=== PATIENT | female | born 1975 | race Caucasian/White ===

== ENCOUNTER → 2017-01-30 | Outpatient (CLI) | payer OTHER ==
[~2017-01-30] MED LIST: ADVIN25/60 INH; ALBUAER2 INH; BISM262C5 PO; CETI10TA10 PO; GLC500 PO; IBUP-103 PO; MONT1TAB3 PO
== END | disposition home or self-care (01) ==
LOC: C.LAB1850 14:31
PROVIDERS: ATTEND Physician Assistant
DX: N91.2 Amenorrhea, unspecified (principal)

== ENCOUNTER → 2017-02-13 | Outpatient (CLI) | payer OTHER ==
[2017-02-13 19:36] LABS: URINE APPEARANCE CLEAR (CLEAR); URINE BILIRUBIN NEG (NEG); URINE COLOR YELLOW; URINE EPITHELIAL CELL AUTO >30 /lpf (0-5); URINE NITRITE NEG (NEG); UROBILINOGEN NEG (NEG)
[2017-02-13 19:46] LABS: MANUAL MICROSCOPIC REQUIRED? NO; REVIEW REQ? NO
== END | disposition home or self-care (01) ==
LOC: C.LABSPEC 18:07
PROVIDERS: ATTEND Obstetrics & Gynecology
DX: O09.521 Supervision of elderly multigravida, first trimester (principal); Z3A.00 Weeks of gestation of pregnancy not specified

== ENCOUNTER → 2017-02-20 | Outpatient (CLI) | payer OTHER ==
[2017-02-20 17:19] LABS: BASO % 0.5 %; BASO ABS # 0.06 K/uL (0-0.2); COMPLETE YES; EOS % 1.9 %; HEMATOCRIT 37.6 % (37-47); IG% 0.2 %; LYMPH % 28.4 %; LYMPH ABS # 3.52 K/uL (1.2-3.4); MEAN CELL VOLUME 77.8 fL (80-100); MEAN CORPUSCULAR HEMOGLOBIN 23.8 pg (25-34); MEAN CORPUSCULAR HGB CONC 30.6 g/dl (32-36); MEAN PLATELET VOLUME 9.7 fL (7.4-10.4); MONO % 6.4 %; NEUT % 62.6 %; PLATELET COUNT 404 K/uL (130-400); RED BLOOD COUNT 4.83 M/uL (4.2-5.4); WHITE BLOOD COUNT 12.38 K/uL (4.8-10.8)
== END | disposition home or self-care (01) ==
LOC: C.LAB1850 16:30
PROVIDERS: ATTEND Obstetrics & Gynecology
DX: O09.521 Supervision of elderly multigravida, first trimester (principal); Z3A.00 Weeks of gestation of pregnancy not specified; F41.9 Anxiety disorder, unspecified; O02.1 Missed abortion

== ENCOUNTER → 2017-02-20 | Outpatient (CLI) | payer OTHER | END | disposition home or self-care (01) | LOC: C.PAPS 09:27 | PROVIDERS: ATTEND Obstetrics & Gynecology | DX: Z12.4 Encounter for screening for malignant neoplasm of cervix (principal) ==

== ENCOUNTER 2017-02-26 15:47 | Emergency (ER) | payer OTHER ==
[~2017-02-26] VITALS: Ht 160 cm; Wt 108.6 kg
[~2017-02-26 15:47] MED LIST changes: -IBUP-103 PO
[2017-02-26 15:53] VITALS: Ht 160 cm; Wt 108.6 kg
[2017-02-26] MEDS ORDERED: SODIUM CHLORIDE 0.9% 1000ML 1,000 ML IV STA (16:15)
[2017-02-26] MEDS ORDERED: KETOROLAC TROMETHAMINE 30 MG/ML VIAL IV STA (16:15)
[2017-02-26 16:41] LABS: BASO % 0.3 %; BASO ABS # 0.05 K/uL (0-0.2); COMPLETE YES; EOS % 1.2 %; HEMATOCRIT 29.7 % (37-47); IG% 0.3 %; LYMPH % 17.4 %; LYMPH ABS # 2.77 K/uL (1.2-3.4); MEAN CELL VOLUME 75.8 fL (80-100); MEAN CORPUSCULAR HEMOGLOBIN 24.5 pg (25-34); MEAN CORPUSCULAR HGB CONC 32.3 g/dl (32-36); MEAN PLATELET VOLUME 9.3 fL (7.4-10.4); MONO % 5.9 %; NEUT % 74.9 %; PLATELET COUNT 349 K/uL (130-400); RED BLOOD COUNT 3.92 M/uL (4.2-5.4); WHITE BLOOD COUNT 15.92 K/uL (4.8-10.8)
[2017-02-26] MEDS ORDERED: IBUP-103 PO (16:52)
[2017-02-26 17:03] LABS: BUN/CREATININE RATIO 7.5 (10-20); CALCIUM 8.7 mg/dl (8.5-10.1); CREATININE 0.79 mg/dl (0.60-1.20)
[2017-02-26 17:06] LABS: ALB/GLOB RATIO 0.8 (0.9-2)
--- NOTE | 2017-02-26 19:34 | DIAGNOSTIC IMAGING REPORT ---
PELVIC ULTRASOUND, TRANSABDOMINAL AND TRANSVAGINAL HISTORY: vaginal bleeding, miscarriage COMPARISON: None. FINDINGS: Uterus: 10.8 x 5.8 x 4.8 cm. Endometrial stripe: Thickened and heterogeneous measuring up to 2 cm. There is also a heterogeneous appearance to the distended lower uterine segment/cervical canal. There is a 2.2 x 1.8 x 1.1 cm complex cystic area at the cervical canal. This favors the deformed gestational sac. No pole or heart rate identified. There is no abnormal color flow within the thickened endometrium. Right ovary: Obscured by overlying bowel gas. Left ovary: Normal in size and demonstrates normal color flow. A 2.4 cm thick-walled cyst. This favors a normal corpus luteum. Miscellaneous:No pelvic free fluid. IMPRESSION: Thickened and heterogeneous endometrium with a 2.2 cm complex cystic focus within the cervical canal. This favors a gestational sac in the setting of a spontaneous in progress. No pole or heart rate identified at this time. Follow-up pelvic ultrasound and follow-up beta-hCG is recommended to ensure resolution of these findings. Electronically signed by: Gene Moore M.D. 02/26/2017 7:32 PM Dictated Date/Time: 02/26/2017 7:28 PM
--- NOTE | 2017-02-26 19:54 | EMERGENCY ROOM VISIT NOTE ---
History First contact with patient: 15:58 Chief Complaint: VAGINAL BLEEDING Stated Complaint: MISCARRIAGE History of Present Illness The patient is a 41 year old female who presents to the Emergency Room with complaints of vaginal bleeding and pelvic pain. The patient states that she was seen in her TAPE MACHINE TAILER's office this past week, 5 days ago. At that time, she had an ultrasound which showed a gestational sac but no embryo. She was estimated to be approximately 7-9 weeks . This was the first that she learned of the . She was told that she would likely miscarry and states that she started bleeding 2 days later. The bleeding became heavier the next day and she had one episode of vomiting. She states she took some ibuprofen last night which seemed to help with her bleeding and pain, but the bleeding and pain returned today. She states the pain has been steadily increasing and she rates her current discomfort a 9/10. She denies any history of bleeding disorders. She denies any urinary symptoms. She denies previous pregnancies. Review of Systems A complete 10 point review of systems was reviewed with the patient with pertinent positives and negatives as per history of present illness. All else were negative. Social History Smoking Status: Former Smoker Drug Use: none Marital Status: single Occupation Status: employed Current/Historical Medications Scheduled Cetirizine Hcl (Zyrtec), 10 MG PO HS Fluticasone Prop/Salmeterol (Advair Diskus 250/50 60 Dose), 1 PUFF INH HS Metformin HCl (Metformin HCl), 850 MG PO DAILY Montelukast Sodium (Singulair), 10 MG PO HS Miscellaneous Medications Ibuprofen Tab (Advil), 200 MG PO Physical Exam Vital Signs Date Time Temp Pulse Resp B/P (MAP) Pulse Ox O2 Delivery O2 Flow Rate FiO2 02/27/17 00:02 36 71 16 111/60 (77) 98 Room Air 02/27/17 00:00 36 72 16 111/60 97 Room Air 02/26/17 23:50 36 67 17 104/62 (69) 98 Room Air 02/26/17 23:40 68 16 121/62 (69) 99 Room Air 02/26/17 23:30 68 18 111/57 (69) 99 Room Air 02/26/17 23:20 74 18 117/59 (73) 99 Room Air 02/26/17 23:10 78 20 132/71 (78) 100 Room Air 02/26/17 23:00 81 19 96/47 (60) 100 Oxymask 10 02/26/17 22:50 36.3 87 20 128/78 100 Oxymask 10 02/26/17 21:22 89 18 150/64 99 02/26/17 21:04 89 18 150/64 99 Room Air 02/26/17 18:47 76 18 118/66 98 Room Air 02/26/17 15:53 36.6 88 18 125/73 100 Room Air Physical Exam VITALS: Vitals are noted on the nurse's note and reviewed by myself. Vital signs stable. GENERAL: This is a 41-year-old female, in no acute distress, nondiaphoretic, well-developed well-nourished. HEENT: Normocephalic. PERRLA. Mucous membranes moist. Neck is supple without nuchal rigidity. HEART: Regular rate and rhythm without murmurs gallops or rubs. LUNGS: Clear to auscultation bilaterally without wheezes, rales or rhonchi. ABDOMEN: Soft, tenderness to palpation across the lower abdomen. No guarding or rebound tenderness. PELVIC: External genitalia unremarkable. Moderate amount of blood within the vaginal fold. No significant active bleeding. NEURO: Patient was alert and oriented to person place and time. Medical Decision & Procedures ER Provider Diagnostic Interpretation: PELVIC ULTRASOUND, TRANSABDOMINAL AND TRANSVAGINAL FINDINGS: Uterus: 10.8 x 5.8 x 4.8 cm. Endometrial stripe: Thickened and heterogeneous measuring up to 2 cm. There is also a heterogeneous appearance to the distended lower uterine segment/cervical canal. There is a 2.2 x 1.8 x 1.1 cm complex cystic area at the cervical canal. This favors the deformed gestational sac. No pole or heart rate identified. There is no abnormal color flow within the thickened endometrium. Right ovary: Obscured by overlying bowel gas. Left ovary: Normal in size and demonstrates normal color flow. A 2.4 cm thick-walled cyst. This favors a normal corpus luteum. Miscellaneous:No pelvic free fluid. IMPRESSION: Thickened and heterogeneous endometrium with a 2.2 cm complex cystic focus within the cervical canal. This favors a gestational sac in the setting of a spontaneous in progress. No pole or heart rate identified at this time. Follow-up pelvic ultrasound and follow-up beta-hCG is recommended to ensure resolution of these findings. Laboratory Results 02/26/17 16:28 Red Blood Count 3.92, Mean Corpuscular Volume 75.8, Mean Corpuscular Hemoglobin 24.5, Mean Corpuscular Hemoglobin Concent 32.3, Mean Platelet Volume 9.3, Neutrophils (%) (Auto) 74.9, Lymphocytes (%) (Auto) 17.4, Monocytes (%) (Auto) 5.9, Eosinophils (%) (Auto) 1.2, Basophils (%) (Auto) 0.3, Neutrophils # (Auto) 11.93, Lymphocytes # (Auto) 2.77, Monocytes # (Auto) 0.94, Eosinophils # (Auto) 0.19, Basophils # (Auto) 0.05 02/26/17 16:28 Test 02/26/17 16:28 02/26/17 22:50 White Blood Count 15.92 K/uL (4.8-10.8) Red Blood Count 3.92 M/uL (4.2-5.4) Hemoglobin 9.6 g/dL (12.0-16.0) Hematocrit 29.7 % (37-47) Mean Corpuscular Volume 75.8 fL (80-100) Mean Corpuscular Hemoglobin 24.5 pg (25-34) Mean Corpuscular Hemoglobin Concent 32.3 g/dl (32-36) Platelet Count 349 K/uL (130-400) Mean Platelet Volume 9.3 fL (7.4-10.4) Neutrophils (%) (Auto) 74.9 % Lymphocytes (%) (Auto) 17.4 % Monocytes (%) (Auto) 5.9 % Eosinophils (%) (Auto) 1.2 % Basophils (%) (Auto) 0.3 % Neutrophils # (Auto) 11.93 K/uL (1.4-6.5) Lymphocytes # (Auto) 2.77 K/uL (1.2-3.4) Monocytes # (Auto) 0.94 K/uL (0.11-0.59) Eosinophils # (Auto) 0.19 K/uL (0-0.5) Basophils # (Auto) 0.05 K/uL (0-0.2) RDW Standard Deviation 42.0 fL (36.4-46.3) RDW Coefficient of Variation 15.1 % (11.5-14.5) Immature Granulocyte % (Auto) 0.3 % Immature Granulocyte # (Auto) 0.04 K/uL (0.00-0.02) Anion Gap 9.0 mmol/L (3-11) Est Creatinine Clear Calc Drug Dose 111.9 ml/min Estimated GFR () 108.5 Estimated GFR (Non- 93.6 BUN/Creatinine Ratio 7.5 (10-20) Calcium Level 8.7 mg/dl (8.5-10.1) Total Bilirubin 0.3 mg/dl (0.2-1) Aspartate Amino Transf (AST/SGOT) 10 U/L (15-37) Alanine Aminotransferase (ALT/SGPT) 18 U/L (12-78) Alkaline Phosphatase 73 U/L (45-117) Total Protein 6.8 gm/dl (6.4-8.2) Albumin 3.1 gm/dl (3.4-5.0) Globulin 3.7 gm/dl (2.5-4.0) Albumin/Globulin Ratio 0.8 (0.9-2) Bedside Glucose 121 mg/dl (70-90) Medications Administered Medications (Trade) Dose Ordered Sig/Lino Route Start Time Stop Time Status Last Admin Dose Admin Sodium Chloride 1,000 ml @ 999 mls/hr Q1H1M STAT IV 02/26/17 16:15 02/26/17 17:15 DC 02/26/17 16:46 999 MLS/HR Ketorolac Tromethamine (Toradol Inj) 30 mg NOW STAT IV 02/26/17 16:15 02/26/17 16:17 DC 02/26/17 16:46 30 MG ED Course The patient was evaluated as above. Labs were drawn and IV access was obtained. Patient was medicated with 30 mg Toradol IV. Patient was reevaluated and states that the Toradol did help to improve her pain. Pelvic ultrasound was performed and read by radiology as above. Case was discussed with Dr. Gomez of [facility]IL[employer]. She will take the patient to the OR for D&E. Medical Decision Differential diagnosis includes incomplete , anemia, spontaneous , among others. The patient is a 41-year-old female who presents today complaining of vaginal bleeding and pelvic pain in the setting of a nonviable . The patient was seen by her TAPE MACHINE TAILER and told that she had a gestational sac without an embryo. She has had vaginal bleeding for the past few days and states that her symptoms worsened this morning, prompting her to present to the ER. Labs revealed a hemoglobin of 9.6, which is decreased from the patient's baseline. Leukocytosis of 15,000. Pelvic exam showed no tissue within the cervical os. Ultrasound showed what appears to be the gestational sac within the cervix. Case was discussed with Dr. Gomez, the TAPE MACHINE TAILER on-call, who will take the patient to the OR for D&E. Impression Primary Impression: Incomplete Departure Information Referrals No Doctor, Assigned (PCP) Patient Instructions [facility]
--- NOTE | 2017-02-26 21:10 | History and Physical ---
History & Physical Date Feb 26, 2017. Chief Complaint vaginal bleeding and cramping History of Present Illness The patient is a 41 year old female with iup at 9 weeks by dates. She presented for a nob and was found to have a probable anembryonic . WAs given bleeding precautions and f/u for one week. She started having spotting and some mild cramping on Sunday and into Sat. Woke up Sunday morning with quite heavy bleeding and cramping. Notes she passed large clots and had significant bleeding. Although her bleeding has slowed somewhat, her cramping has gotten significantly worse. She is unable to function secondary to pain. Presents to the ED. ON exam per PA, there is no tissue in the os. ON US, there is complex tissue in the jaswinder that is likely consistent with the gestational sac. Discussed options to include D&E, medical management. She wishes to proceed with surgery. Past Medical/Surgical History pmhx--Type 2 diabetes, hx colitis, hx of asthma (well controlled), obesity, hx of varicella psxhx--leep x 2, lpsc with removal of cyst wrapped around her FT Additional History Hepatic Disease: No Endocrine Disorder: Yes Kidney Disease: No Hypertension: No Heart Disease: No Bleeding Tendencies: No Infectious Diseases: No LMP: 12/19/16 Allergies Coded Allergies: Shellfish (Unverified Allergy, Severe, SHELLFISH,FISH-THROAT SWELLS, ) Cephalexin (Verified Allergy, Mild, SEIZURE, 07/28/15) Amoxicillin (Verified Allergy, Unknown, HEART PALPITATIONS, HIVES, FAINTING,BP DROPS, 02/05/15) Clavulanic Acid (Verified Allergy, Unknown, HEART PALPITATIONS,HIVES, FAINTING,BP DROPS, 02/05/15) Doxycycline (Verified Allergy, Unknown, HEART PALPITATIONS, HIVES, FAINTING, BP DROPS, 02/05/15) Erythromycin (Verified Allergy, Unknown, HEART PALPITATIONS,HIVES,FAINTING , BP DROPS, 02/05/15) Mushroom (Verified Allergy, Unknown, CHEEKS SWELL A LITTLE, FLUSHED, ) Penicillins (Verified Allergy, Unknown, HEART PALPITATIONS, HIVES,FAINTING ,BP DROPS, 02/05/15) Sulfa Antibiotics (Verified Allergy, Unknown, HEART PALPITATIONS,HIVES, FAINTING, BP DROPS, 02/05/15) Sulfamethoxazole w/Trimethoprim (Verified Allergy, Unknown, HEART PALPITATIONS, HIVES, FAINTING, BP DROPS, 02/05/15) Tetracycline (Verified Allergy, Unknown, HEART PALPITATIONS,HIVES, FAINTING, BP DROPS, 02/05/15) Home Medications Scheduled Cetirizine Hcl (Zyrtec), 10 MG PO HS Fluticasone Prop/Salmeterol (Advair Diskus 250/50 60 Dose), 1 PUFF INH HS Metformin HCl (Metformin HCl), 850 MG PO DAILY Montelukast Sodium (Singulair), 10 MG PO HS Miscellaneous Medications Ibuprofen Tab (Advil), 200 MG PO Physical Examination Skin: warm/dry Neck: supple Respiratory/Chest: lungs clear Cardiovascular: regular rate, rhythm Abdomen / GI: non tender, + pertinent finding (obese) Back: normal inspection Extremities: normal inspection Neurologic/Psych: alert, oriented x 3 Diagnosis Incomplete . Plan of Treatment Plan to proceed with D&E. The risks of the surgery were discussed with the patient including anesthesia, bleeding, need for transfusion, infection, perforation of the uterus, need for further surgery or hospitalization, uterine scarring, heart attack, blood clot , stroke or . The risks and benefits of medical management were also reviewed with the patient. Patient is allergic to EVERY antibiotic she has ever taken and all reactions have been anaphylaxis. This includes the most common preop antibiotic for this procedure --doxy. An alternative is azithro--allergic. She may not have ever been exposed to Flagyl the other alternative. However, she is very concerned she might have a reaction and her previous physicians noted that if she needed to be on antibiotics, she should be hospitalized for at least 5 days. We discussed the risks of infection should she not take prophylactic antibiotics. She is willing to accept the risks of infection and declines to take antibiotics. I feel the risk of possible adverse reaction to antibiotics is outweighed by the benefits and agree. She is aware she is taking a risk.
[2017-02-26 21:22] VITALS: O2SAT 99
[2017-02-26] MEDS ORDERED: MoRPHine SULFATE PF 1 MG/ML 10 ML AMP/VIAL ONE (21:54)
[2017-02-26] MEDS ORDERED: FENTANYL CITRATE INJ 50 MCG/1 ML 2 ML VIAL ONE (21:54)
[2017-02-26] MEDS ORDERED: ROCURONIUM BROMID 50MG/5ML SYR ONE (22:34)
[2017-02-26] MEDS ORDERED: ONDANSETRON INJ 2 MG/ML 2 ML VIAL ONE (22:34)
[2017-02-26] MEDS ORDERED: GLYCOPYRROLATE INJ 0.2 MG/ML VIAL ONE (22:34)
[2017-02-26] MEDS ORDERED: LIDOCAINE HCL 2% 2 ML VIAL (20MG/ML) ONE (22:34)
[2017-02-26] MEDS ORDERED: PROPOFOL IV EMULSION 10 MG/ML 20 ML VIAL IV ONE (22:34)
[2017-02-26] MEDS ORDERED: KETOROLAC TROMETHAMINE 30 MG/ML VIAL ONE (22:34)
[2017-02-26] MEDS ORDERED: DEXAMETHASONE SOD INJ 4 MG/ML VIAL ONE (22:34)
[2017-02-26] MEDS ORDERED: SUCCINYLCHOLINE CHLORIDE 20 MG/ML 10 ML VIAL IV ONE (22:34)
[2017-02-26] MEDS ORDERED: NEOSTIGMINE METHYLSULFATE 5 MG/5 ML SYR ONE (22:34)
[2017-02-26] MEDS ORDERED: PROMETHAZINE HCL INJ 6.25 MG in SODIUM CHLORIDE 0.9% 50ML 50 ML IV PRN (23:00)
[2017-02-26] MEDS ORDERED: ONDANSETRON INJ 2 MG/ML 2 ML VIAL IV PRN (23:00)
[2017-02-26] MEDS ORDERED: ATROPINE SULFATE 0.1 MG/ML 5ML SYR IV PRN (23:00)
[2017-02-26] MEDS ORDERED: EpHEDrine SULFATE INJ 50 MG/ML AMP IV PRN (23:00)
[2017-02-26] MEDS ORDERED: FENTANYL CITRATE INJ 50 MCG/1 ML 2 ML VIAL IV PRN (23:00)
[2017-02-26] MEDS ORDERED: LACTATED RINGER'S 1000ML 1,000 ML IV SCH (23:31)
--- NOTE | 2017-02-26 23:33 | Discharge Instructions ---
Discharge Instructions Date of Service Feb 26, 2017. Visit Reason for Visit: Miscarriage Discharge Discharge Diagnosis / Problem: S/P d&e Discharge Goals Goal(s): Specific goals Activity Recommendations Activity Limitations: per Instructions/Follow-up section Anesthesia . Post Anesthesia Instructions: If you have had General Anesthesia or IV Sedation: * Do not drive today. * Resume driving when surgeon permits. * Do not make important decisions or sign legal documents today. * Call surgeon for: 1. Temperature elevations greater than 101 degrees F. 2. Uncontrollable pain. 3. Excessive bleeding. 4. Persistent nausea and vomiting. 5. Medication intolerance (nausea, vomiting or rash). * For nausea and vomiting use only clear liquids such as: tea, soda, bouillon until nausea subsides, then gradually increase diet as tolerated. * If you have any concerns or questions, call your surgeon's office. If physician is unavailable and it is an emergency, call 911 or go to the nearest emergency room. . Instructions / Follow-Up Instructions / Follow-Up ACTIVITY RECOMMENDATIONS: * Avoid tampons, douching, hot tubs, pools, and intercourse until bleeding has stopped. * May shower as usual. * No strenuous activity for 24-48 hours. After 24-48 hours, you may do anything you feel like doing (driving and sports are okay). SPECIAL CARE INSTRUCTIONS: Special Diet: * Mild nausea may occur in the immediate post-operative period. * Take clear liquids such as tea, cola or bouillon until all nausea has subsided; you may then resume your normal diet. Special Care: * Light bleeding and vaginal spotting can last from a few days to 3-4 weeks. Call your doctor if bleeding becomes heavier than the heaviest part of your period. * Check your temperature twice a day for one week. If it goes above 100.4 degrees Fahrenheit (38.0 Celsius), notify your doctor. * Call your doctor's office for an appointment for 6 weeks after your surgery. FOLLOW-UP VISIT: Call your doctor's office for an appointment for 6 weeks after your surgery. Diet Recommendations Recommended Home Diet: no limitations, resume previous diet Procedures Procedures Performed: Dilation and Evacuation Pending Studies Studies pending at discharge: no Medical Emergencies . Who to Call and When: Medical Emergencies: If at any time you feel your situation is an emergency, please call 911 immediately. . Non-Emergent Contact Non-Emergency issues call your: [facility] . . "Provider Documentation" section prepared by Tiffanie Gomez. .
--- NOTE | 2017-02-26 23:35 | Anesthesiology Progress Note ---
Anesthesia Post Op Note Date & Time Feb 26, 2017 at 23:35 Vital Signs Pain Intensity: 0 Vital Signs Past 12 Hours Date Time Temp Pulse Resp B/P (MAP) Pulse Ox O2 Delivery O2 Flow Rate FiO2 02/26/17 23:30 68 18 111/57 (69) 99 Room Air 02/26/17 23:20 74 18 117/59 (73) 99 Room Air 02/26/17 23:10 78 20 132/71 (78) 100 Room Air 02/26/17 23:00 81 19 96/47 (60) 100 Oxymask 10 02/26/17 22:50 36.3 87 20 128/78 100 Oxymask 10 02/26/17 21:22 89 18 150/64 99 02/26/17 21:04 89 18 150/64 99 Room Air 02/26/17 18:47 76 18 118/66 98 Room Air 02/26/17 15:53 36.6 88 18 125/73 100 Room Air Notes Mental Status: alert / awake / arousable, participated in evaluation Pt Amnestic to Procedure: Yes Nausea / Vomiting: adequately controlled Pain: adequately controlled Airway Patency, RR, SpO2: stable & adequate BP & HR: stable & adequate Hydration State: stable & adequate Anesthetic Complications: no major complications apparent
--- NOTE | 2017-02-26 23:35 | [facility] Post Operative Brief Note ---
Immediate Operative Summary Operative Date Feb 26, 2017. Pre-Operative Diagnosis incomplete Post-Operative Diagnosis same Procedure(s) Performed Dilation and Evacuation Surgeon Dr. Gomez [employer] Surgeon(s) none Estimated Blood Loss 50ml Findings UTERUS SOUNDED TO 8CM, POCS REMOVED. Fluids (cc crystalloids) 800CC Specimens products of conception Drains NONE Anesthesia GETT Complication(s) None Disposition Surgical ICU
[2017-02-26] MEDS ORDERED: IBUPROFEN 600 MG TAB PO PRN (23:45)
[2017-02-26] MEDS ORDERED: IBUPROFEN 200 MG TAB PO PRN (23:45)
[2017-02-26] MEDS ORDERED: MoRPHine SULFATE 4 MG/ML 1 ML CARP\\VIAL IV PRN (23:45)
[2017-02-26] MEDS ORDERED: ACETAMINOPHEN 325 MG TAB PO PRN (23:45)
[2017-02-26] MEDS ORDERED: ACETAMINOPHEN 650 MG SUPP PR PRN (23:45)
[2017-02-26] MEDS ORDERED: OXYCODONE/ACETAMINOPHEN 5-325 TAB PO PRN ×2 (23:45)
[2017-02-26] MEDS ORDERED: MoRPHine SULFATE 2 MG/ML CARP IV PRN ×2 (23:45)
[2017-02-26] MEDS ORDERED: KETOROLAC TROMETHAMINE 30 MG/ML VIAL IV. PRN ×2 (23:45)
[2017-02-27] VITALS: BP 111/60; PULSE 72; TEMP 36; O2SAT 97
[2017-02-27 00:50] VITALS: BP 115/58; PULSE 68; O2SAT 97
--- NOTE | 2017-02-27 02:17 | OPERATIVE REPORT ---
DATE OF OPERATION: 02/26/2017 PREOPERATIVE DIAGNOSIS: Incomplete . POSTOPERATIVE DIAGNOSIS: Same. PROCEDURE: Dilation and evacuation. SURGEON: Tiffanie Gomez MD ANESTHESIA: General per endotracheal tube. ESTIMATED BLOOD LOSS: 50 mL. FLUIDS: 800 mL of crystalloid. URINE OUTPUT: About 50 mL of concentrated urine drained from the bladder at the end of the procedure. INDICATIONS: The patient is a 3, para 0-0-2-0, who recently presented for an OB visit. She was 9 weeks by dates, but on dating ultrasound was found to have likely anembryonic and the gestational sac was in the lower part of the uterus/lower uterine segment. The patient was counseled that this was likely a miscarriage and was to follow up in 1 week. She began spotting on Sunday and Sunday, on Sunday she had heavy bleeding. Today her bleeding has decreased, but she has significant pain. Uterus shows retained products of conception. FINDINGS: Uterus sounded to 8 cm. Products of conception were removed. I called for ultrasound guidance to make sure that all products were removed. COMPLICATIONS: None. DRAINS: None. DISPOSITION: To recovery room in stable condition. DESCRIPTION OF PROCEDURE: The patient was taken to the operating room where she was identified verbally and by bracelet. She was placed in the dorsal supine position where general anesthesia was induced without difficulty. She was then placed in dorsal lithotomy position in candy-cane stirrups and prepped and draped in normal sterile fashion. Timeout was held identifying correct patient, procedure and positioning. Given PATIENT HAS ALLERGIES TO EVERY ANTIBIOTIC that she has ever taken including ANAPHYLAXIS to many, we decided not to give perioperative antibiotics. The bladder was drained of a small bit of urine and exam under anesthesia revealed a 7-8 week size anteverted uterus. A weighted speculum was placed in the posterior vagina. The anterior lip of the cervix was grasped with a single tooth tenaculum. Uterus sounded to 7-8 cm, dilated to a #27 Hegar dilator. An 8 mm suction curette was placed through the uterus multiple times with return of products of conception. In fact, given that I removed products of conception with almost every sweep of the suction curette, I called for ultrasound to perform guidance to make sure that I had removed all products of conception. Once ultrasound presented and I had done 2 swipes without returning products of conception, the ultrasound showed that it appeared that I had rid the uterus most if not all of products of conception. A curettage was done and a cat's cry was heard in all quadrants and the procedure was terminated. All instruments removed from the vagina. Hemostasis was noted to be excellent. All sponge, lap and needle counts were correct x2. The patient tolerated the procedure well and was taken to recovery room in stable condition. I attest to the content of the Intraoperative Record and any orders documented therein. Any exceptions are noted below. CECED
== END 2017-02-26 21:22 | disposition home or self-care (01) ==
LOC: C.EDB 15:48 → C.EDC 21:22
DX: O03.4 Incomplete spontaneous abortion without complication (principal); D72.829 Elevated white blood cell count, unspecified; Z79.84 Long term (current) use of oral hypoglycemic drugs; Z79.899 Other long term (current) drug therapy; Z87.891 Personal history of nicotine dependence